=== PATIENT | male | born 1960 | race Caucasian/White ===

== ENCOUNTER 2016-05-16 22:44 | Emergency (ER) | payer SELFPAY ==
[~2016-05-16] VITALS: Ht 175.3 cm; Wt 83.9 kg
[2016-05-16] MEDS ORDERED: EXCETAB81 PO (22:59)
[2016-05-16] MEDS ORDERED: PRIL20CA9 PO (22:59)
[2016-05-17] MEDS ORDERED: NS 1,000 ML IV ONE (01:15)
[2016-05-17 01:38] LABS: BASO # 0.1 K/mm3 (0.0-0.2); BASO % 0.7 % (0.0-1.0); EOS # 0.4 K/mm3 (0.0-0.50); EOS % 3.7 % (0.0-3.0); LARGE UNSTAINED CELL # 0.2 K/mm3 (0.0-0.4); LYMPH # 3.8 K/mm3 (1.5-4.5); LYMPH % 32.7 % (24.0-44.0); MEAN CORPUSCULAR HEMOGLOBIN 32.5 pg (27.0-33.0); MEAN CORPUSCULAR VOLUME 85.2 fl (80.0-96.0); MONO # 0.5 K/mm3 (0.0-0.8); MONO % 4.6 % (0.0-5.0); NEUTROPHILS # 6.5 K/mm3 (1.8-7.7); NEUTROPHILS % 56.3 % (36.0-66.0); PLATELET COUNT, AUTOMATED 346 k/mm3 (150-450); WHITE BLOOD COUNT 11.5 K/mm3 (4.0-10.0)
[2016-05-17] MEDS ORDERED: MORPHINE 4 MG/ML 1ML SYRINGE IV ONE (01:45)
[2016-05-17 01:48] LABS: MEAN CORPUSCULAR HGB CONC 38.1 g/dl (32.0-36.5)
[2016-05-17 01:54] VITALS: BP 174/105
[2016-05-17] MEDS ORDERED: cloNIDine 0.2 MG TAB PO ONE (02:00)
--- NOTE | 2016-05-17 02:00 | REPUSA ---
CT of the abdomen and pelvis without contrast Clinical statement: Pain. Technique: Multiple axial CT images were obtained from the base of the lungs to the floor of the pelv is utilizing 5 mm axial slices without administration of contrast. Coronal and sagittal reconstructio ns were also obtained. No comparison is available. Findings: Chest: The visualized lung bases are clear. Abdomen: The kidneys are normal in size bilaterally. There is no evidence of hydronephrosis or nephro lithiasis. There are several tiny gallstones noted within the gallbladder. There are no pericholecyst ic inflammatory changes appreciated. The liver, spleen, pancreas, and adrenal glands are unremarkable . The aorta demonstrates normal caliber and contour, with minimal atherosclerotic calcifications. The re is no abdominal lymphadenopathy or ascites. Pelvis: The bowel is unremarkable, with no obstructive or inflammatory changes. Moderate left-sided d iverticulosis is noted without evidence of diverticulitis. The appendix is normal. The urinary bladde r is within normal limits. There is no pelvic lymphadenopathy or ascites. The other pelvic structures appear unremarkable. Bones: There are no suspicious osseous abnormalities seen. Impression: 1. No acute abnormality to explain the patient's pain. 2. Sigmoid diverticulosis without evidence of diverticulitis. No obstructive or inflammatory bowel ch anges. 3. Cholelithiasis without evidence of acute cholecystitis. 4. No evidence of hydronephrosis or nephrolithiasis.
[2016-05-17 02:25] LABS: ANION GAP 11 MEQ/L (8-16); CARBON DIOXIDE LEVEL 22 MEQ/L (21-32); CHLORIDE LEVEL 92 MEQ/L (98-107); CREATININE FOR GFR 1.14 MG/DL (0.70-1.30); GLOMERULAR FILTRATION RATE > 60.0 (>56); POTASSIUM SERUM 4.2 MEQ/L (3.5-5.1); SODIUM LEVEL 125 MEQ/L (136-145)
[2016-05-17 03:21] LABS: GLUCOSE, FASTING 448 MG/DL (70-105)
[2016-05-17 03:22] LABS: ALBUMIN 4.2 GM/DL (3.2-5.2); ALBUMIN/GLOBULIN RATIO 0.56 (1.00-1.93); TOTAL PROTEIN 11.7 GM/DL (6.4-8.2); TRIGLYCERIDES LEVEL 10274 MG/DL (<150)
[2016-05-17 03:30] VITALS: BP 127/82
[2016-05-17] MEDS ORDERED: HumuLIN R (REGULAR) INSULIN (NovoLIN R) **100U/ML** PER UNIT IV ONE (03:45)
[2016-05-17] MEDS ORDERED: NS 500 ML IV ONE (03:45)
[2016-05-17 04:10] LABS: BLOOD UREA NITROGEN 21 MG/DL (7-18)
[2016-05-17 04:11] LABS: ALKALINE PHOSPHATASE 108 U/L (45-117); AMYLASE 23 U/L (25-115); AST/SGOT 64 U/L (15-37)
[2016-05-17 04:14] LABS: ALT/SGPT 63 U/L (12-78)
[2016-05-17 04:44] LABS: BILIRUBIN,TOTAL 1.3 MG/DL (0.2-1.0)
[2016-05-17] MEDS ORDERED: PRAV40TA2 PO (04:50)
[2016-05-17] MEDS ORDERED: GLIP2.5T6 PO (04:51)
[2016-05-17] MEDS ORDERED: TRAM50TA2 PO (04:57)
[2016-05-17] MEDS ORDERED: PRAVASTATIN 20 MG TAB PO SCH (21:00)
== END 2016-05-17 05:13 | disposition home or self-care (01) ==
LOC: M ED 05-17 01:42
DX: R73.9 Hyperglycemia, unspecified (principal); E87.0 Hyperosmolality and hypernatremia; E78.2 Mixed hyperlipidemia; Z72.0 Tobacco use